=== PATIENT | male | born 1960 | race African-American/Black ===

== ENCOUNTER 2019-10-09 11:13 | Emergency (ER) | payer BC, OTHER ==
[~2019-10-09] VITALS: Ht 185.4 cm; Wt 99.8 kg
[~2019-10-09 11:13] MED LIST: ATACAND HCT 321 EAC1 PO; ATICAND; COCONUT OIL PO; NEXIUM; NEXIUM40 MG PO; VITAMIN C PO; VITAMIN E PO; ZINC SULFATE220 MG PO; [UNRECOGNIZED DRUG - OTHER] PO
--- NOTE | 2019-10-09 11:49 | Emergency Department Note ---
History of Present Illnes History of Present Illness Chief Complaint: COVID PUI History of Present Illness This is a 59 year old male arrives to ED with generalized malaise and weakness, tested positive for Covid . Chief Complaint Comment tested positive for covid 10/06/2019 c/o cough, fever, sob, muscle aches, chills, n/v/d, and loss of taste/smell, decreased appetite seen by dr maradiaga Historian: Patient Arrival Mode: Car Onset (how long ago): day(s) Radiation: Reports non-radiation Severity: mild Onset quality: gradual Duration (how long): day(s) Timing of current episode: intermittent Progression: worsening Chronicity: new Context: Reports recent illness Relieving factors: none Past Medical/Family History Physician Review I have reviewed the patient's past medical and family history. Any updates have been documented here. Past Medical History Recent Fever: Yes Clinical Suspicion of Infectio: Yes New/Unexplained Change in Ment: No Past Medical History: Hypertension, GERD Past Surgical History: Hernia Repair Other Surgery: HERNIA REPAIR Social History Smoking Cessation: Never Smoker Counseling Performed: No Alcohol Use: Social Physically hurt or threatened: No Review of Systems Review of Systems Constitutional: Reports as per HPI, Reports malaise, Reports weakness EENTM: Reports no symptoms Cardiovascular: Reports no symptoms Respiratory: Reports as per HPI Gastrointestinal: Reports no symptoms Genitourinary: Reports no symptoms Musculoskeletal: Reports no symptoms Integumentary: Reports no symptoms Neurological: Reports no symptoms Psychological: Reports no symptoms Endocrine: Reports no symptoms Hematological/Lymphatic: Reports no symptoms Physical Exam Related Data Allergies: Coded Allergies: No Known Allergies (Unverified , 06/26/12) Triage Vital Signs Vital Signs Date Time Temp Pulse Resp B/P (MAP) Pulse Ox O2 Delivery O2 Flow Rate FiO2 10/09/19 11:20 98.7 79 26 128/76 100 Room Air Vital signs reviewed: Yes Physical Exam CONSTITUTIONAL Constitutional: Present well-developed, Present well-nourished HENT HENT: Present normocephalic, Present atraumatic, Present oropharynx clear/moist, Present nose normal HENT L/R: Present left ext ear normal, Present right ext ear normal EYES Eyes: Reports PERRL, Reports conjunctivae normal NECK Neck: Present ROM normal PULMONARY Pulmonary: Present effort normal, Present breath sounds normal CARDIOVASCULAR Cardiovascular: Present regular rhythm, Present heart sounds normal, Present capillary refill normal, Present normal rate GASTROINTESTINAL Abdominal: Present soft, Present nontender, Present bowel sounds normal GENITOURINARY Genitourinary: Present exam deferred SKIN Skin: Present warm, Present dry MUSCULOSKELETAL Musculoskeletal: Present ROM normal NEUROLOGICAL Neurological: Present alert, Present oriented x 3, Present no gross motor or sensory deficits PSYCHOLOGICAL Psychological: Present mood/affect normal, Present judgement normal Results Imaging Imaging results reviewed: Yes Impressions IMPRESSION: No acute cardiopulmonary process identified. Assessment & Plan Medical Decision Making MDM 59 -year-old well-appearing male arrives to the ED with complaints of cough fever loss of taste and smell. Patient is clinically presenting with signs and symptoms consistent with Covid 19. Patient informed he is positive until proven otherwise. Patient's oxygen saturation remained 99% even on exertion, no e vidence of tachypnea or dyspnea noted in the ED. Spoke present length about the importance of sleeping on his stomach and rotating from side to side. Z-Joseph given, signs and symptoms for return discussed. In the light of the Covid pandemic, disaster medicine care was given- Pt understands he is at high risk of morbidity and mortality given his age and co-morbidities. Pt understands he is welcome to return to the ED at anytime for worsening symptoms. -- Patient's lab work reviewed,- chest x-ray shows questionable patchy airspace opacities . Patient clinically appears well, outpatient pulmonary follow-up given. The red flags for return to emergency department given. Patient understands the emergency department is open at all times to serve his needs as well as the needs of the community. Assessment & Plan Final Impression: (1) COVID-19 Depart Disposition: HOME, SELF-CARE Last Vital Signs Date Time Temp Pulse Resp B/P (MAP) Pulse Ox O2 Delivery O2 Flow Rate FiO2 10/09/19 11:20 98.7 79 26 128/76 100 Room Air Home Meds Reported Medications Grape Seed Oil (GRAPESEED OIL) 500 Ml Oil, PO DAILY 03/16/19 [Coconut Oil] No Conflict Check, PO DAILY 03/16/19 Zinc Sulfate (ZINC SULFATE) 220 Mg Tablet, 220 MG PO DAILY, #30 CAP 03/16/19 [Vitamin C] No Conflict Check, PO DAILY 03/16/19 [Vitamin E] No Conflict Check, PO DAILY 03/16/19 Candesartan/Hydrochlorothiazid (ATACAND HCT 32-25 MG TABLET) 1 Each Tablet, 1 TAB PO DAILY 06/26/12 Esomeprazole Magnesium (NEXIUM) 40 Mg Capsule.dr, 40 MG PO DAILY 06/26/12 CHRISTIE MARADIAGA, Oct 09, 2019 11:49
--- NOTE | 2019-10-09 12:24 | Diagnostic Imaging Report ---
EXAM: CHEST SINGLE (PORTABLE) DATE: 10/09/2019 11:45 AM INDICATION: Possible Covid COMPARISON: None FINDINGS: The trachea is midline. Linear opacities noted within the lower lung zones bilaterally suggestive of atelectasis. The lungs are otherwise symmetrically expanded without evidence for large focal consolidation, pneumothorax, or significant pleural effusion. The cardiomediastinal silhouette and pulmonary vasculature are within normal limits. No acute osseous abnormality is identified. The surrounding soft tissues are unremarkable. IMPRESSION: No acute cardiopulmonary process identified. Signed by: Dr. Denis Givens MD on 10/09/2019 12:21 PM
== END 2019-10-09 12:32 | disposition home or self-care (01) ==
LOC: ER 11:50
DX: U07.1 COVID-19 (principal); R05 Cough; R53.1 Weakness; R53.81 Other malaise; I10 Essential (primary) hypertension; K21.9 Gastro-esophageal reflux disease without esophagitis
CPT/HCPCS: 71045; 99283